=== PATIENT | female | born 1970 | race Caucasian/White ===

== ENCOUNTER 2024-10-29 13:03 | Emergency (ER) | payer BC ==
[2024-10-29 13:33] LABS: BASOPHILS PERCENT AUTO 0.1 % (0.2-1.2); EOSINOPHILS ABSOLUTE AUTO 0.1 x10^3/uL (0.0-0.5); EOSINOPHILS PERCENT AUTO 0.4 % (0.0-4.0); HEMATOCRIT 52.2 % (33.0-47.0); HEMOGLOBIN 18.3 g/dL (12.0-16.0); IMMATURE GRAN ABSOLUTE AUTO 0.01 x10^3/uL (0.00-0.07); LYMPHOCYTES ABSOLUTE AUTO 1.1 x10^3/uL (1.0-4.8); LYMPHOCYTES PERCENT AUTO 6.4 % (25.0-50.0); MEAN CORPUSCULAR HEMOGLOBIN 32.6 pg (26.0-32.0); MEAN CORPUSCULAR HGB CONC 35.1 g/dL (32.0-36.0); MONOCYTES ABSOLUTE AUTO 0.5 x10^3/uL (0.0-0.8); MONOCYTES PERCENT AUTO 3.1 % (2.0-11.0); NEUTROPHILS PERCENT AUTO 89.9 % (50.0-80.0); PLATELET COUNT,PLT 306 x10^3/uL (130-400); RED BLOOD CELL COUNT 5.61 x10^6/uL (4.00-5.50); WHITE BLOOD CELL COUNT,WBC 16.6 x10^3/uL (4.0-10.0)
[2024-10-29] MEDS ORDERED: Ondansetron 4 MG/2 ML SDV IM ONE (13:40)
[2024-10-29 13:50] LABS: A/G RATIO 0.98; ALANINE AMINOTRANSFERASE,ALT 41 U/L (14-59); ALBUMIN 4.4 g/dL (3.4-5.0); ALKALINE PHOSPHATASE 99 U/L (46-116); ASPARTATE AMNIOTRANSFERASE,AST 31 U/L (15-37); BLOOD UREA NITROGEN,BUN 18 mg/dL (7-18); CALCIUM 10.6 mg/dL (8.5-10.1); CARBON DIOXIDE,CO2 22 mmol/L (21-32); CHLORIDE,CL 101 mmol/L (98-107); CREATININE 1.1 mg/dL (0.55-1.02); GLUCOSE RANDOM 131 mg/dL (70-99); POTASSIUM,K 3.6 mmol/L (3.5-5.1); PROTEIN TOTAL,TP 8.9 g/dL (6.4-8.2); SODIUM,NA 137 mmol/L (136-145)
[2024-10-29 13:54] LABS: ANION GAP 17.6 mmol/L (5-15); ESTIMATED GFR 60 mL/min (>=60)
[2024-10-29] MEDS: Ondansetron 4 MG/2 ML SDV IVPUSH ONE (14:06)
[2024-10-29] MEDS: Lactated Ringers 1,000 ML IV ONE (14:06)
[2024-10-29] MEDS: cefTRIAXone 1 GM Vial IVPUSH ONE (14:55)
[2024-10-29] MEDS: ceFAZolin 1 GM Vial IVPUSH ONE (14:55)
[2024-10-29] MEDS: Iopamidol 612 MG/ML 100 ML Bottle IVPUSH ONE (15:54)
== END 2024-10-29 16:25 | disposition short-term general hospital (02) ==
LOC: VM.ED 13:03
DX: A41.9 Sepsis, unspecified organism (principal); R19.7 Diarrhea, unspecified; R10.9 Unspecified abdominal pain; Z88.8 Allergy status to other drugs, medicaments and biological substances; Z91.048 Other nonmedicinal substance allergy status; Z88.5 Allergy status to narcotic agent
CPT/HCPCS: 36415; 74177; 80053; 83605; 85025; 87040; 93005; 93010; 96361; 96374; 96375; 99284; 99285; J0690; J0696; J2405; J3360; J7120; Q9967